=== PATIENT | male | born 1960 | race Caucasian/White ===

== ENCOUNTER 2021-07-30 16:53 | Emergency (ER) | payer SELFPAY ==
[~2021-07-30 16:53] MED LIST: Iopamidol-370 76% 500 ML 1 ML ONE
[2021-07-30] MEDS ORDERED: Fentanyl 100 MCG/2 ML VIAL ONE (17:33)
[2021-07-30] MEDS ORDERED: Ondansetron PF 4 MG/2 ML Vial ONE (17:33)
[2021-07-30] MEDS ORDERED: Boostrix 0.5 ML (Tdap) VIAL ONE (17:33)
== END 2021-07-30 18:55 | disposition home or self-care (01) ==
LOC: ERS 16:53 → EDBD 16:53 → ERS 18:55
DX: S82.431A Displaced oblique fracture of shaft of right fibula, initial encounter for closed fracture (principal); S82.231A Displaced oblique fracture of shaft of right tibia, initial encounter for closed fracture; S01.81XA Laceration without foreign body of other part of head, initial encounter; I10 Essential (primary) hypertension; E11.9 Type 2 diabetes mellitus without complications; F17.290 Nicotine dependence, other tobacco product, uncomplicated; F17.220 Nicotine dependence, chewing tobacco, uncomplicated; Z23 Encounter for immunization; V89.2XXA Person injured in unspecified motor-vehicle accident, traffic, initial encounter
CPT/HCPCS: 29515; 70450; 71260; 72125; 74177; 90471; 90715; G0390; J2405; J3010; Q9967